=== PATIENT | female | born 1945 | race Caucasian/White ===

== ENCOUNTER → 2020-04-19 | Outpatient (CLI) | payer MEDICARE ==
[~2020-04-19] MED LIST: BIOT10TA PO; BUME2TAB3 PO; CHOL20008 PO; CIDE600C PO; LEVO112T2 PO; MAGN400T9 PO; METO25TA91 PO; OMEP-110 PO; PARO30TA3 PO; POTA99TA2 PO; ROPI0.5T4 PO; SENN1TAB67 PO; SPIR25TA5 PO; TRAZ-175 PO; vitamin b12 PO
== END | disposition home or self-care (01) ==
LOC: STAR 15:30
PROVIDERS: ATTEND Neurological Surgery
DX: Z20.828 Contact with and (suspected) exposure to other viral communicable diseases (principal); M48.02 Spinal stenosis, cervical region
CPT/HCPCS: 87635